=== PATIENT | female | born 1965 | race Caucasian/White ===

== ENCOUNTER → 2017-01-02 | Outpatient (CLI) | payer MEDICAID | LOC: FIMAGING 11:36 | PROVIDERS: ATTEND Registered Nurse | DX: Z12.31 Encounter for screening mammogram for malignant neoplasm of breast (principal) | CPT/HCPCS: G0202 ==

== ENCOUNTER 2017-02-03 06:56 | Day surgery (SDC) | payer MEDICAID ==
[2017-02-03] MEDS ORDERED: LIDOCAINE 1% 2 ML INJ ONE (07:10)
--- NOTE | 2017-02-03 07:11 | PDANEPAE ---
ANE History of Present Illness here for colonoscopy ANE Past Medical History - Cardiovascular History Hx Hypertension: No Hx Arrhythmias: No Hx Chest Pain: No Hx Coronary Artery / Peripheral Vascular Disease: No Hx CHF / Valvular Disease: No Hx Palpitations: No - Pulmonary History Hx COPD: No Hx Asthma/Reactive Airway Disease: No Hx Recent Upper Respiratory Infection: No Hx Oxygen in Use at Home: No Hx Sleep Apnea: No Sleep Apnea Screening Result - Last Documented: Negative - Neurologic History Hx Cerebrovascular Accident: No Hx Seizures: No Hx Dementia: No - Endocrine History Hx Diabetes: No - Renal History Hx Renal Disorders: No - Liver History Hx Hepatic Disorders: No - Neurological & Psychiatric Hx Hx Neurological and Psychiatric Disorders: No - Cancer History Hx Cancer: No - Congenital Disorder History Hx Congenital Disorders: No - GI History Hx Gastrointestinal Disorders: No - Other Health History Other Health History: screening colonoscopy - Chronic Pain History Chronic Pain: No - Surgical History Prior Surgeries: C section x3 ,, ANE Review of Systems Review of systems is: negative - Exercise capacity Exercise capacity: >=4 METS METS (RN): 4 METS ANE Patient History - Allergies Allergies/Adverse Reactions: No Known Allergies Allergy (Unverified 01/27/17 15:04) - Home Medications Home medications: home medication list seen and reviewed Home Medications: NK [No Known Home Meds] 01/27/17 [Last Taken Unknown] - NPO status NPO Status: no food or drink >8 hours - Anes Hx Anes Hx: no prior problems - Smoking Hx Smoking Status: Never smoked ANE Labs/Vital Signs - Vital Signs Height: 165.1 cm Weight: 63.049 kg ANE Physical Exam - Airway Neck exam: FROM Mallampati Score: Class 1 - Pulmonary Pulmonary: no respiratory distress - Cardiovascular Cardiovascular: regular rate and rhythym - ASA Status ASA Status: II ANE Anesthesia Plan Anesthesia Plan: GA with mask
[2017-02-03] MEDS ORDERED: LIDOCAINE 1% 2 ML INJ ID PRN (07:18)
[2017-02-03] MEDS ORDERED: LR 1,000 ML IV SCH (07:30)
[2017-02-03] MEDS ORDERED: PROPOFOL/EMULSION 500 MG/50 ML BOTTLE IV ONE (08:12)
[2017-02-03] MEDS ORDERED: fentaNYL 100 MCG/2 ML INJ IVP PRN (08:19)
[2017-02-03] MEDS ORDERED: NALOXONE HCL 0.4 MG/ML INJ IVP PRN (08:19)
[2017-02-03] MEDS ORDERED: ONDANSETRON 4 MG/2 ML VIAL IVP PRN (08:19)
--- NOTE | 2017-02-03 08:19 | PDGENHP ---
History & Physical Chief Complaint: Screening colonoscopy Relevant Physical Exam: GEN: NAD. Cardiac: RRR. Lungs: CTA B. Abd: Soft, nt, nd
--- NOTE | 2017-02-03 08:41 | POSTOPPROG ---
Post Op Note Date of Operation: 02/03/17 Surgeon: Alex Martinez Pre-op Diagnosis: screen colon cancer Post-op Diagnosis: 2mm cecal polyp removed Indication: screen colon cancer Procedure: Colonoscopy with bx Findings: Small cecal colon polyp Inf/Abcess present in the surg proc area at time of surgery?: No
[2017-02-03 09:01] VITALS: TEMP 97.7
--- NOTE | 2017-02-03 09:11 | POSTANESTH ---
Post Anesthetic Evaluation Cardiovascular Status: Normal, Stable Respiratory Status: Normal, Stable Level of Consciousness/Mental Status: Mildly Sleepy, Arousable Pain Control: Adequate, Prn Tx Ordered Nausea/Vomiting Control: Adequate, Prn Tx Ordered Complications Possibly Related to Anesthesia: None Noted
[2017-02-03 09:12] VITALS: RESP 15; O2SAT 96
--- NOTE | 2017-02-03 09:23 | GPN ---
[f rep st] PROCEDURE NOTE PREPROCEDURE DIAGNOSIS: Screening colonoscopy. POSTPROCEDURE DIAGNOSES: 1. Screening colonoscopy. 2. Status post removal of a 2 mm cecal polyp. NAME OF PROCEDURE: Colonoscopy with biopsies. MEDICATIONS: Monitored anesthesia care. COMPLICATIONS: None. BLOOD LOSS: None. SPECIMENS TAKEN: Yes. INDICATIONS: The patient is a 52-year-old female here for a screening colonoscopy. She has no fami ly history of colon cancer, colon polyps. The risks and benefits of the procedure discussed with marlon e patient. Consent obtained. Risks include, but not limited to, bleeding, perforation, and sedatio n. The patient is ASA Class 1. PROCEDURE: The adult colonoscope was advanced to the terminal ileum, which appeared normal. The il eocecal valve, appendiceal orifice, cecum were normal other than a 2 mm polyp, which was removed fro m the cecum using cold biopsy forceps. The polyp was retrieved and sent to pathology. The ascendin g colon, hepatic flexure, transverse colon, splenic flexure, descending colon, sigmoid colon were no rmal. Retroflexed views in the rectum were normal. The rectum was otherwise normal. IMPRESSION: A 2 mm cecal polyp removed using cold biopsy forceps. Otherwise, normal colonoscopy. RECOMMENDATION: 1. Discharge home with escort. 2. Advance diet as tolerated. 3. Follow up with final pathology results. Results available within 10 days. 4. Repeat colonoscopy based on pathology results. Repeat colonoscopy in 5 years if the polyp is fo und to be adenomatous. Otherwise, repeat colonoscopy in 10 years recommended. 5. Thank you for allowing me to participate in the care of the patient. Please do not hesitate to call with questions. /[id number]/MODL
[2017-02-03 09:53] VITALS: BP 143/96; PULSE 76
== END 2017-02-03 09:50 | disposition home or self-care (01) ==
LOC: FSGY 06:56
PROVIDERS: ATTEND Internal Medicine Gastroenterology
PROC: 0DBH8ZX Excision of Cecum, Via Natural or Artificial Opening Endoscopic, Diagnostic (ICD-10-PCS; principal; 2017-02-03 08:30)
DX: Z12.11 Encounter for screening for malignant neoplasm of colon (principal); D12.0 Benign neoplasm of cecum
CPT/HCPCS: J2704

== ENCOUNTER → 2018-08-05 | Outpatient (CLI) | payer MEDICAID | LOC: FIMAGING 14:21 | DX: Z12.31 Encounter for screening mammogram for malignant neoplasm of breast (principal) ==